=== PATIENT | male | born 1945 | race Caucasian/White ===

== ENCOUNTER 2020-03-29 15:05 | Inpatient (IN) | payer MEDICARE, OTHER ==
[~2020-03-29] VITALS: Ht 188 cm; Wt 128.6 kg
--- NOTE | 2020-03-29 15:05 | NUR ---
PATIENT BROUGHT IN BY EMS IN SEVERE RESPIRATORY DISTRESS WITH CPAP ON. MD AT BEDSIDE FOR EVAL
[2020-03-29 15:31] LABS: HEMATOCRIT 40.3 % (39.0-50.0); HEMOGLOBIN 11.9 g/dl (14.0-18.0); IMMATURE GRANULOCYTES 0.7 % (0.0-5.0); MEAN CELL VOLUME 81.1 fL CALC (80.0-100.0); MEAN CORPUSCULAR HGB 23.9 pG CALC (26.0-32.0); MEAN CORPUSCULAR HGB CONC 29.5 g/dL CAL (32.0-36.0); NEUT# 17.87 thou/uL (1.82-7.42); RED BLOOD COUNT 4.97 mill/uL (4.70-6.10); RED CELL DISTRI WIDTH 16.2 % (11.5-15.5)
--- NOTE | 2020-03-29 15:42 | NUR ---
RECEIVED PT FROM EMS ON CPAP OF 5 FROM [facility]. RR 30+ SO2 91%. PT PLACED ON CPAP OF [address] WANG FIO2 60%. ABG AFTER 30 MINUTES 7.4/40.8/24.9/97% FIO2 DECREASED TO 50% AT THIS TIME. PT IS IN NO RESPIRATORY DISTRESS. AND RN SYLVESTER IS AT BEDSIDE.
--- NOTE | 2020-03-29 15:46 | NUR ---
PT ARRIVED BY EMS IN RESP DISTRESS, A BIPAP WAS ALREADY ON PT AND EMS STATES HE WAS GIVEN DECADRON. PT HAS RR OF 25. HR ELEVATED AT 125. PT IS SOB AND IS NOT ANSWERING QUESTIONS, ONLY FEW WORDS USED. NOT AOX4.. PT HAS HX OF ALZHEIMERS. LUNGS HAS RHONCI SOUNDS BILAT THROUGHOUT. VISIBLE AND SLIGHTLY DISTENDED VEINS ON CHEST AND ABD. BIPAP INITIATED AT 1510. PT IN TRIPOD POSITION. ABD MUSCLES USED FOR BREATHING. WILL CONTINUE TO MONTITOR.
[2020-03-29 15:50] LABS: ALKALINE PHOSPHATASE 180 u/l (38-126); ANION GAP 12 (6-22 (CALC)); BILIRUBIN, TOTAL 0.7 mg/dL (0.0-1.4); BUN 20 mg/dL (8-23); BUN/CREATININE RATIO 16 (12-20 (CALC)); CARBON DIOXIDE 27 mmol/l (22-30); CHLORIDE 101 mmol/l (95-108); CREATININE 1.2 mg/dL (0.7-1.3); GFR 60 ML/MIN (>=60 (CALC)); GFR FOR AFR.AMER. > 60 ML/MIN (>=60 (CALC)); POTASSIUM 4.6 mmol/l (3.5-5.1); SGOT/AST 20 u/l (19-48); SODIUM 136 mmol/l (137-146); TOTAL PROTEIN 8.1 g/dL (6.3-8.2)
[2020-03-29] MEDS ORDERED: ASPIRIN81 MG PO (16:00)
[2020-03-29] MEDS ORDERED: LEVOTHYROXIN50 MCG PO (16:00)
[2020-03-29 16:02] LABS: MYOGLOBIN 68 ng/mL (0 - 121)
--- NOTE | 2020-03-29 16:30 | NUR ---
PT CONTINUES ON BIPAP MACHINE, BREATHING WITH NO DIFFICULTY. RESPIRATIONS CONTINUE TO BE RAPID AT 28. PT CONTINUES TO TRY AND GET OUT OF BED. BED REPOSITIONED.
--- NOTE | 2020-03-29 17:30 | NUR ---
PT CONTINUES TO BE IN UNCHANGED CONDITION, O2SAT IS AT 97%. HR AT 109 AND RR AT 28. PT IS IN NO DISTRESS AT THIS TIME AND BREATHING EFFECTIVELY SHOWING SYMETRICAL CHEST RISE AND FALL AND ADEQUATE RECOIL. PT CONTINUES TO TRY AND GET OUT OF BED
[2020-03-29] MEDS ORDERED: LASIX 40 MG TAB40 MG PO (18:12)
[2020-03-29] MEDS ORDERED: POTASSIUM CHLO20 ME1 PO (18:12)
[2020-03-29] MEDS ORDERED: DILTIAZEM120 M1 PO (18:13)
[2020-03-29] MEDS ORDERED: NEXIUM 24HR20 MG (18:13)
[2020-03-29] MEDS ORDERED: FOLIC ACID1 MG PO (18:14)
[2020-03-29] MEDS ORDERED: XARELTO10 MG PO (18:14)
[2020-03-29] MEDS ORDERED: TOPIRAMATE50 MG PO (18:14)
[2020-03-29] MEDS ORDERED: ATIVAN2 MG PO (18:14)
[2020-03-29] MEDS ORDERED: VITAMIN D5000 UNI1 (18:15)
[2020-03-29] MEDS ORDERED: ATORVASTATIN CA40 MG PO (18:15)
[2020-03-29] MEDS ORDERED: LEVEMIR FL100 UNIT/M SC (18:16)
[2020-03-29] MEDS ORDERED: HYDROCODONE BIT1 TA7 (18:16)
[2020-03-29] MEDS ORDERED: SYMBICORT1 AE1 IN (18:17)
[2020-03-29] MEDS ORDERED: OXY1 (18:17)
[2020-03-29] MEDS ORDERED: VENLAFAXINE150 MG PO (18:18)
[2020-03-29] MEDS ORDERED: ABILIFY MYCITE5 MG (18:18)
[2020-03-29] MEDS ORDERED: ALFUZOSIN HCL E10 MG PO (18:18)
[2020-03-29] MEDS ORDERED: FINASTERIDE5 MG PO (18:18)
[2020-03-29] MEDS ORDERED: FERRAPLUS 90 PO (18:19)
--- NOTE | 2020-03-29 18:22 | NUR ---
PT IS RESTING ON STRETCHER WITH AT BEDSIDE. PT IS TRYING TO GET OUT OF BED AND IS EXPLAINED THAT HE CANNOT GET OUT BECAUSE OF MACHINE THAT IS ATTACHED. O2 SAT AT 98%. ADEQUATE BREATHING THAT CONTINUES TO BE RAPID AT 25. WILL CONTINUE TO MONITOR.
--- NOTE | 2020-03-29 19:00 | NUR ---
GAVE REPORT TO DONI IN ICU AND NURSE GROVER WHOM I GAVE REPORT TO SAID SHE WILL TRANSPORT
--- NOTE | 2020-03-29 20:00 | NUR ---
PT WAS INCONTINENT LARGE AMOUNT OF URINE. CHANGED PT AND LINEN. PT TRANSPORTED WITH ASSISTANCE OF RT MIGUEL TO MOVE BIPAP, PT PACED ON 02 VIA [place] FOR TRANSPORT.
--- NOTE | 2020-03-29 20:05 | NUR ---
RECEIVED FROM ER VIA STRETCHER. PATIENT ABLE TO TRANSFER SELF FROM STRETCHER TO BED. ADMISSION WEIGHT PER BEDSCALE 284.1#. ORIENTED TO PERSON ONLY. ABLE TO STATE BIRTHDATE. ATTEMPTS TO ORIENT TO SURROUNDINGS. PLACED ON FRUIT INSPECTOR SHOWING AFIB. RT LUIZ IN ATTENDANCE PLACED PATIENT ON O2 6L HFNC. O2 SAT 93% REPS LABORED WITH EXERTION. BREATH SOUNDS DIMINISHED THROUGOUT. MOIST, NON-PRODUCTIVE COUGH NOTED. BLE EDEMATOUS, HARD-REDDENED WITH MULTIPLE SCABBED AREAS AND OPEN AREAS. PERIPHERAL PULSES PALPABLE. SALINE LOCKS INTACT IN LAC AND RFA, BOTH SITES BENIGN. EXPLAINED PLAN OF CARE. CALL SHERWOOD IN REACH.
[2020-03-29 20:15] VITALS: BP 136/65
[2020-03-29 20:30] VITALS: BP 122/68
--- NOTE | 2020-03-29 20:30 | NUR ---
PATIENT MERCED ASSISTED WITH ADMISSION HISTORY VIA TELEPHONE.
[2020-03-29 20:45] VITALS: BP 123/63
--- NOTE | 2020-03-29 21:30 | NUR ---
PATIENT SAT AT SIDE OF BED TO EAT.
[2020-03-29 21:45] VITALS: BP 112/62
--- NOTE | 2020-03-29 22:00 | NUR ---
VSS. AFIB ON MONITOR.
--- NOTE | 2020-03-29 22:20 | NUR ---
PATIENT HAS PERIODS OF RESTLESSNESS, YELLING OUT. INFORMED DR LOPEZ-NEW ORDERS RECEIVED.
--- NOTE | 2020-03-29 23:52 | NUR ---
XANAX 0.25 MG PO FOR AMXIETY AND RESTLESSNESS. VSS. RESP LABORED. MOIST COUGH. AFIB ON MONITOR.
[2020-03-30] VITALS (12 sets, daily range): BP systolic 91–148; BP diastolic 38–80
--- NOTE | 2020-03-30 00:30 | NUR ---
PATIENT RESTING QUIETLY AND CALMLY IN BED. NO COMPLAINTS VOICED.
--- NOTE | 2020-03-30 02:00 | NUR ---
VSS. MAINTAINING O2 SATS >95% RESP LESS LABORED. ART.
--- NOTE | 2020-03-30 04:00 | NUR ---
PAITENT HAS ONLY DOZED FOR SHORT INTERVALS. COOPERATIVE AND PLEASANT. SALINE LOCK IN RFA LEAKING, DC'D WITH CATHETER INATCT.
--- NOTE | 2020-03-30 05:00 | NUR ---
INCONTINENT OF LARGE AMOUNT OF URINE AND MODERATE HARD FORMED DARK BROWN STOOL. BAHED AND PARTIAL BED CHANGED.
[2020-03-30 05:19] LABS: HEMATOCRIT 38.3 % (39.0-50.0); HEMOGLOBIN 11.3 g/dl (14.0-18.0); MEAN CELL VOLUME 79.6 fL CALC (80.0-100.0); MEAN CORPUSCULAR HGB 23.5 pG CALC (26.0-32.0); MEAN CORPUSCULAR HGB CONC 29.5 g/dL CAL (32.0-36.0); NEUT# 18.07 thou/uL (1.82-7.42); RED BLOOD COUNT 4.81 mill/uL (4.70-6.10); RED CELL DISTRI WIDTH 16.1 % (11.5-15.5)
[2020-03-30 05:37] LABS: BUN 23 mg/dL (8-23); BUN/CREATININE RATIO 20 (12-20 (CALC)); CARBON DIOXIDE 25 mmol/l (22-30); CHLORIDE 101 mmol/l (95-108); CREATININE 1.1 mg/dL (0.7-1.3); GFR > 60 ML/MIN (>=60 (CALC)); GFR FOR AFR.AMER. > 60 ML/MIN (>=60 (CALC)); SODIUM 134 mmol/l (137-146)
[2020-03-30 05:42] LABS: ANION GAP 13 (6-22 (CALC)); POTASSIUM 5.2 mmol/l (3.5-5.1)
--- NOTE | 2020-03-30 06:00 | NUR ---
SITTING AT SIDE OF BED DRINKING COFFEE. OCCASSIONALLY ASKS WHERE IS. HAS BEEN CALM AND COOPERATIVE SINCE XANAX GIVEN LAST EVENING. VSS.
--- NOTE | 2020-03-30 07:47 | NUR ---
Patient is screened for PT intervention and he would benefit from consult if medical agrees
--- NOTE | 2020-03-30 09:00 | NUR ---
PT IS SEEN AWAKE, ALERT, ORIENTED X 2-3. LUNGS WHEEZY WITH COUGH, USES 5 LPM NC. NO COMPLAINTS OF SHORTNESS OF BREATH. PT INSISTS THAT HE FEELS WELL ENOUGH TO GO HOME. PT SEEN BY DR WOODRUFF, WHO WANTS HIM TO STAY AT LEAST THROUGH THE AFTERNOON TO SEE IF HE TRULY IS WELL ENOUGH TO GO HOME. MERCED HAS CALLED AND UPDATED. SHE BROUGHT BRIEFS FOR HIS INCONTINENCE. PT PROVIDED XANAX FOR HIS RESTLESSNESS.
--- NOTE | 2020-03-30 11:55 | NUR ---
PT UP TO BSC FOR LARGE BM. O-2 TURNED DOWN TO 3, SATS DROPPED. AT 4 LPM STILL LOW, SO BACK UP TO 5. NO COMPLAINTS OF SOB. PT CONTINUES WITH PRODUCTIVE COUGH, HEARD CLEARING.
--- NOTE | 2020-03-30 15:56 | NUR ---
PT SEEN RESTING IN THE BED WITH EYES CLOSED, NO DISTRESS NOTED. PT'S O-2 SATS IN THE LOW 90s WHILE AT REST.
--- NOTE | 2020-03-30 18:04 | NUR ---
PT ADVISED THAT DR WOODRUFF WOULD NOT BE DISCHARGED HOME TONIGHT. PT DISAPPOINTED. PT HAS RECLINER AT BEDSIDE, HAS BEEN GOING BACK AND FORTH STEADILY.
--- NOTE | 2020-03-30 19:15 | NUR ---
ASSESSMENT COMPLETED. DENIES NEEDS/PAIN. IV SITE PATENT AND SL. ALERT TO PERSON AND PLACE. PT. SITTING UP IN THE RECLINER; NO DISTRESS NOTED. O2 INFUSING PER NC PER ORDER. SCABBED AREAS NOTED TO BLE AND HEMATOMA TO LEFT GATES; CONCRETE PLANT LABORER. INSTRUCTED TO CALL FOR ANY NEEDS. CALL LIGHT IS IN REACH. WILL CONTINUE TO MONITOR. CALL LIGHT IS IN REACH.
--- NOTE | 2020-03-30 21:50 | NUR ---
ASSISTED PT. TO USE URINAL AND VOIDED 150MLS OF URINE; DEPENDS IS DRY. ASSISTED PT. INTO BED FROM RECLINER; PT. IS WITH EXERTIONAL SOB NOTED. DENIES FURTHER NEEDS. CALL LIGHT IS IN REACH.
[2020-03-30 22:30] LABS: URINE BILIRUBIN - DIPSTICK NEGATIVE (NEGATIVE); URINE BLOOD DIPSTICK NEGATIVE (NEGATIVE); URINE COLOR YELLOW; URINE GLUCOSE - DIPSTICK 250 mg/dL (NEGATIVE); URINE KETONE NEGATIVE (NEGATIVE); URINE LEUK ESTERASE NEGATIVE (NEGATIVE); URINE NITRITE - DIPSTICK NEGATIVE (Negative); URINE PH 5.5 (4.5-8.0); URINE PROTEIN - DIPSTICK TRACE mg/dL (NEG-TRACE); URINE SPECIFIC GRAVITY 1.025; URINE UROBILINOGEN - DIPSTICK 0.2 E.U./dL (0.2)
--- NOTE | 2020-03-30 23:30 | NUR ---
SCHEDULED SOLU-MEDROL GIVEN; DENIES NEEDS. VSS. WILL CONTINUE TO MONITOR.
[2020-03-31] VITALS (10 sets, daily range): BP systolic 104–161; BP diastolic 53–92
--- NOTE | 2020-03-31 01:11 | NUR ---
PT. SITTING UP ON THE SIDE OF THE BED AND NOTED TO BE ANXIOUS AND REQUESTING TO SMOKE CIGARETTES; PT. EDUCATED ON TOBACCO FREE CAMPUS AND MEDICATED WITH ORDERED PRN XANAX; WILL CONTINUE TO MONITOR.
--- NOTE | 2020-03-31 04:00 | NUR ---
PT. SITTING UP IN RECLINER WITH NO DISTRESS NOTED; O2 INFUSING PER NC PER ORDER. SNACK AND COFFEE PROVIDED. ENCOURAGED TO CALL FOR ANY NEEDS. CALL LIGHT IS IN REACH.
--- NOTE | 2020-03-31 05:00 | NUR ---
PT. HAD A LARGE INCONTINENCE OF URINE AND ASSISTED WITH A BATH WELL LINENS CHANGED. PO FLUIDS OFFERED. DAILY WT, OBTAINED. CALL LIGHT IS IN REACH. DENIES FURTHER NEEDS.
[2020-03-31] MEDS ORDERED: TAM75CAP PO (07:21)
[2020-03-31] MEDS ORDERED: DOXYCYCL HYC100 MG PO (07:23)
[2020-03-31] MEDS ORDERED: PREDNISONE10 MG PO (07:23)
[2020-03-31 08:13] LABS: HEMATOCRIT 39.6 % (39.0-50.0); HEMOGLOBIN 11.5 g/dl (14.0-18.0); MEAN CORPUSCULAR HGB 23.5 pG CALC (26.0-32.0); RED BLOOD COUNT 4.89 mill/uL (4.70-6.10)
[2020-03-31 08:37] LABS: ANION GAP 11 (6-22 (CALC)); BUN 32 mg/dL (8-23); BUN/CREATININE RATIO 31 (12-20 (CALC)); CARBON DIOXIDE 26 mmol/l (22-30); CHLORIDE 104 mmol/l (95-108); GFR > 60 ML/MIN (>=60 (CALC)); GFR FOR AFR.AMER. > 60 ML/MIN (>=60 (CALC)); POTASSIUM 4.8 mmol/l (3.5-5.1); SODIUM 136 mmol/l (137-146)
--- NOTE | 2020-03-31 09:16 | NUR ---
PT WAS SEEN BY DR WOODRUFF THIS MORNING, DISCUSSED HIS DISCHARGE. A FEW MINUTES LATER, PT SAID THAT HE WAS NOT READY FOR DISCHARGE THIS MORNING AFTER ALL. PT NOTIFIED OF HIS CHANGE OF MIND. NO DISTRESS NOTED. LUNGS ARE WHEEZY WITH COUGH, 4 LPM. OXYGEN DROPPED TO 3 LPM AND PT IS MAINTAINING WELL. PT IS BACK AND FORTH TO BED AND CHAIR DESIRED.
--- NOTE | 2020-03-31 13:07 | NUR ---
PT HAS BEEN AT REST IN THE BED FOR MOST OF TODAY. OXYGEN REMAINS AT 3 LPM, WHICH IS WHAT HE USES AT HOME, SATS 91%.
--- NOTE | 2020-03-31 15:48 | NUR ---
PT CONTINUES BEFORE, OOB IN CHAIR AND RESTING IN BED. PT STATES THAT HE IS BREATHING A LITTLE BETTER. OXYGEN REMAINS AT 3 LPM, SAME HIS HOME RATE, SATS LOW 90s.
--- NOTE | 2020-03-31 19:10 | NUR ---
REPORT GIVEN BY LENNY. PATIENT SITTING UP AT THE BEDSIDE. RESP EVEN AND LABORED, OXYGEN IN PLACE.IV SALINE LOCKED. pLAN OF CARE DISCUSSED. PATIENT INFORMED TO CALL WITH ANY QUESTIONS OR CONCERNS. FALL AND SAFTEY PRECAUTIONS IN PLACE.
--- NOTE | 2020-03-31 20:35 | NUR ---
PATIENT'S LINEN CHANGE PERFORMED. NEW GOWN PLACED ON PATIENT AND TELE PADS. PATIENT PULLED TELE PADS OFF WITH HIS CONSTANT MOVING. AT THIS TIME PATIENT ASKING FOR ICE CREAM HE WAS INFORMED DUE TO HIS DIABETES AND BLOOD GLUCOSE BEING HIGH I WAS UNABLE TO GIVE HIM ICE CREAM. HE HAS BEEN GIVEN SUGAR-FREE OPTIONS TO CHOOSE FROM.
--- NOTE | 2020-03-31 22:00 | NUR ---
PATIENT RESTING IN BED.FfALL AND SAFTEY PRECAUTIONS IN PLACE.
[2020-04-01] VITALS: BP 113/56
--- NOTE | 2020-04-01 | NUR ---
pATIENT CALLING AND REQUESTING A BREATHING TREATMENT. PATIENT STATES HE HASN'T BEEN GIVEN ONE ALL NIGHT, I INFORMED THE PATIENT THATHE DIDN'T HAVE ANY SCHEDULED. HE NEEDS TO CALL FOR BREATHING TREATMENTS IF HE FEELS HE NEEDS ONE. RT AT THE BEDSIDE.
[2020-04-01 02:00] VITALS: BP 124/67
[2020-04-01 04:00] VITALS: BP 127/70
--- NOTE | 2020-04-01 04:30 | NUR ---
PATIENT BROKE PATIENT ID [id number]. NEW BRACELT PRINTED AND PLACED ON PATIENT. VERIFED NAME AND WITH PATIENT.
[2020-04-01 06:00] VITALS: BP 132/72
--- NOTE | 2020-04-01 06:19 | NUR ---
PATIENT CALLING OUT TO STAFF STATING HE DOESN'T FEEL WELL, HE NEEDS SOMETHING TO EAT. PATIENT WAS BROUGHT A NURTIGRAIN BAR AND BLOOD GLUCOSE WAS CHECKED. BLOOD GLUCOSE WAS 248. PATIENT STATED THAT IT JUST MAKES HIS NAUSEA IF HE DOESN'T GET SOEMTHING TO EAT SOON HE WAKES UP IN THE MORNING.
[2020-04-01 08:00] VITALS: BP 142/78
--- NOTE | 2020-04-01 08:25 | NUR ---
PT SEEN AWAKE, ALERT, ORIENTED X 3. LUNGS CLEAR, DIMINISHED, WITH SLIGHT WHEEZE AFTER COUGHING, USING 3 LPM. NO COMPLAINT OF SHORTNESS OF BREATH OR OTHERWISE. PT STATES THAT HE FEELS WELL ENOUGH TO GO HOME TODAY. DR WOODRUFF HAS SEEN PT, OKAYS DISCHARGE FOR TODAY. PT SITS UP IN THE BED OR CHAIR DESIRED. PT VOIDS IN URINAL OCCASIONALLY, OTHERWISE USES BRIEFS.
[2020-04-01 09:00] VITALS: BP 125/60
--- NOTE | 2020-04-01 10:27 | NUR ---
PT HAS BEEN DISCHARGED TO HOME. PT VERBALIZES UNDERSTANDING OF DC INSTRUCTIONS, TAKEN BY WHEELCHAIR TO VEHICLE WHERE MERCED WAS WAITING. PT DID HAVE HOME OXYGEN WAITING FOR HIM AND WAS HOOKED TO TANK TO GET TO [facility]. TO PROVIDE RESPIRATORY TREATMENT AT HOME PER COARSENESS TO BREATH SOUNDS.
== END 2020-04-01 10:15 | disposition home health service (06) | DRG 190 ==
LOC: ED 15:05 → ED-I 16:40 → ED 17:00 → ICU 17:01
PROVIDERS: Emergency Medicine; Internal Medicine; ADMIT Internal Medicine; ATTEND Internal Medicine
PROC: 5A09357 Assistance with Respiratory Ventilation, Less than 24 Consecutive Hours, Continuous Positive Airway Pressure (ICD-10-PCS; principal; 2020-03-29)
DX: J44.1 Chronic obstructive pulmonary disease with (acute) exacerbation (principal); J96.21 Acute and chronic respiratory failure with hypoxia; J11.1 Influenza due to unidentified influenza virus with other respiratory manifestations; I25.10 Atherosclerotic heart disease of native coronary artery without angina pectoris; I48.91 Unspecified atrial fibrillation; I10 Essential (primary) hypertension; E11.9 Type 2 diabetes mellitus without complications; F03.90 Unspecified dementia, unspecified severity, without behavioral disturbance, psychotic disturbance, mood disturbance, and anxiety; E78.5 Hyperlipidemia, unspecified; E03.9 Hypothyroidism, unspecified; G89.29 Other chronic pain; S80.12XA Contusion of left lower leg, initial encounter; W22.8XXA Striking against or struck by other objects, initial encounter; Z20.828 Contact with and (suspected) exposure to other viral communicable diseases; Z99.81 Dependence on supplemental oxygen; Z79.01 Long term (current) use of anticoagulants; Z79.4 Long term (current) use of insulin; Z79.891 Long term (current) use of opiate analgesic; Z79.82 Long term (current) use of aspirin; Z79.899 Other long term (current) drug therapy

== ENCOUNTER 2020-05-15 09:11 | Emergency (ER) | payer MEDICARE, OTHER ==
[~2020-05-15] VITALS: Ht 188 cm; Wt 136.4 kg
[~2020-05-15 09:11] MED LIST: ABILIFY MYCITE5 MG; ALFUZOSIN HCL E10 MG PO; ASPIRIN81 MG PO; ATIVAN2 MG PO; ATORVASTATIN CA40 MG PO; DILTIAZEM120 M1 PO; DOXYCYCL HYC100 MG PO; FERRAPLUS 90 PO; FINASTERIDE5 MG PO; FOLIC ACID1 MG PO; HYDROCODONE BIT1 TA7; LASIX 40 MG TAB40 MG PO; LEVEMIR FL100 UNIT/M SC; LEVOTHYROXIN50 MCG PO; NEXIUM 24HR20 MG; OXY1; POTASSIUM CHLO20 ME1 PO; PREDNISONE10 MG PO; SYMBICORT1 AE1 IN; TAM75CAP PO; TOPIRAMATE50 MG PO; VENLAFAXINE150 MG PO; VITAMIN D5000 UNI1; XARELTO10 MG PO
[2020-05-15 10:07] LABS: HEMATOCRIT 37.8 % (39.0-50.0); HEMOGLOBIN 11.1 g/dl (14.0-18.0); IMMATURE GRANULOCYTES 1.1 % (0.0-5.0); MEAN CELL VOLUME 81.5 fL CALC (80.0-100.0); MEAN CORPUSCULAR HGB 23.9 pG CALC (26.0-32.0); MEAN CORPUSCULAR HGB CONC 29.4 g/dL CAL (32.0-36.0); NEUT# 12.85 thou/uL (1.82-7.42); RED BLOOD COUNT 4.64 mill/uL (4.70-6.10); RED CELL DISTRI WIDTH 17.9 % (11.5-15.5)
[2020-05-15 10:29] LABS: ALBUMIN 3.8 g/dL (3.2-5.0); ALKALINE PHOSPHATASE 164 u/l (38-126); ANION GAP 13 (6-22 (CALC)); BILIRUBIN, TOTAL 0.6 mg/dL (0.0-1.4); BUN 20 mg/dL (8-23); BUN/CREATININE RATIO 17 (12-20 (CALC)); C-REACTIVE PROTEIN 7.7 mg/dL (0-0.9); CARBON DIOXIDE 25 mmol/l (22-30); CHLORIDE 98 mmol/l (95-108); CREATININE 1.2 mg/dL (0.7-1.3); GFR 60 ML/MIN (>=60 (CALC)); GFR FOR AFR.AMER. > 60 ML/MIN (>=60 (CALC)); LIPASE 28 u/l (23-300); POTASSIUM 4.6 mmol/l (3.5-5.1); SGOT/AST 23 u/l (19-48); SODIUM 132 mmol/l (137-146); TOTAL PROTEIN 7.1 g/dL (6.3-8.2)
[2020-05-15] MEDS ORDERED: ZPAK PO (12:03)
[2020-05-15] MEDS ORDERED: PREDNISONE50 MG PO (12:03)
[2020-05-15 12:51] VITALS: BP 134/63
== END 2020-05-15 13:35 | disposition home or self-care (01) ==
LOC: ED 09:11
PROVIDERS: Family Medicine
DX: J06.9 Acute upper respiratory infection, unspecified (principal); J44.9 Chronic obstructive pulmonary disease, unspecified; E11.9 Type 2 diabetes mellitus without complications; I10 Essential (primary) hypertension; I48.91 Unspecified atrial fibrillation; E78.5 Hyperlipidemia, unspecified; F03.90 Unspecified dementia, unspecified severity, without behavioral disturbance, psychotic disturbance, mood disturbance, and anxiety; F17.200 Nicotine dependence, unspecified, uncomplicated; Z79.4 Long term (current) use of insulin; Z99.81 Dependence on supplemental oxygen; Z20.822 Contact with and (suspected) exposure to COVID-19

== ENCOUNTER 2020-07-23 | Inpatient (IN) | payer MEDICARE, OTHER ==
[~2020-07-23] MED LIST changes: -HYDROCODONE BIT1 TA7; +HYDROCODONE BIT1 TA7 PO; -NEXIUM 24HR20 MG; +NEXIUM 24HR20 MG PO; +PREDNISONE50 MG PO; -VITAMIN D5000 UNI1; +VITAMIN D5000 UNI1 PO; +ZPAK PO
[2020-07-23 21:09] LABS: HEMATOCRIT 41.5 % (39.0-50.0); HEMOGLOBIN 12.3 g/dl (14.0-18.0); IMMATURE GRANULOCYTES 1.6 % (0.0-5.0); MEAN CELL VOLUME 84.5 fL CALC (80.0-100.0); MEAN CORPUSCULAR HGB 25.1 pG CALC (26.0-32.0); MEAN CORPUSCULAR HGB CONC 29.6 g/dL CAL (32.0-36.0); NEUT# 22.58 thou/uL (1.82-7.42); RED BLOOD COUNT 4.91 mill/uL (4.70-6.10); RED CELL DISTRI WIDTH 18.3 % (11.5-15.5)
[2020-07-23 21:24] LABS: ALKALINE PHOSPHATASE 157 u/l (38-126); ANION GAP 15 (6-22 (CALC)); BILIRUBIN, TOTAL 0.7 mg/dL (0.0-1.4); BUN 34 mg/dL (8-23); BUN/CREATININE RATIO 27 (12-20 (CALC)); CARBON DIOXIDE 23 mmol/l (22-30); CHLORIDE 100 mmol/l (95-108); CREATININE 1.3 mg/dL (0.7-1.3); GFR 54 ML/MIN (>=60 (CALC)); GFR FOR AFR.AMER. > 60 ML/MIN (>=60 (CALC)); POTASSIUM 4.8 mmol/l (3.5-5.1); SGOT/AST 26 u/l (19-48); SODIUM 133 mmol/l (137-146); TOTAL PROTEIN 8.4 g/dL (6.3-8.2)
[2020-07-23 21:28] LABS: ALBUMIN 4.6 g/dL (3.2-5.0)
[2020-07-24] VITALS (9 sets, daily range): BP systolic 102–143; BP diastolic 53–80
[2020-07-24 04:32] LABS: HEMATOCRIT 38.2 % (39.0-50.0); HEMOGLOBIN 11.4 g/dl (14.0-18.0); IMMATURE GRANULOCYTES 2.1 % (0.0-5.0); MEAN CELL VOLUME 84.3 fL CALC (80.0-100.0); MEAN CORPUSCULAR HGB 25.2 pG CALC (26.0-32.0); MEAN CORPUSCULAR HGB CONC 29.8 g/dL CAL (32.0-36.0); NEUT# 26.09 thou/uL (1.82-7.42); RED BLOOD COUNT 4.53 mill/uL (4.70-6.10); RED CELL DISTRI WIDTH 18.4 % (11.5-15.5)
[2020-07-24 04:42] LABS: BUN 35 mg/dL (8-23); BUN/CREATININE RATIO 26 (12-20 (CALC)); CARBON DIOXIDE 24 mmol/l (22-30); CHLORIDE 101 mmol/l (95-108); CREATININE 1.3 mg/dL (0.7-1.3); GFR 54 ML/MIN (>=60 (CALC)); GFR FOR AFR.AMER. > 60 ML/MIN (>=60 (CALC)); SODIUM 132 mmol/l (137-146)
[2020-07-24 04:44] LABS: ANION GAP 12 (6-22 (CALC)); POTASSIUM 5.4 mmol/l (3.5-5.1)
[2020-07-24] MEDS ORDERED: SYMBICORT1 AE1 IN (15:22)
[2020-07-24] MEDS ORDERED: ABILIFY MYCITE5 MG PO (15:24)
[2020-07-24] MEDS ORDERED: ALBUTEROL108 MCG/AC IN (15:28)
[2020-07-24] MEDS ORDERED: TURMERIC CURCU500 MG PO (15:38)
[2020-07-24] MEDS ORDERED: OXY1 (15:39)
[2020-07-25] VITALS (17 sets, daily range): BP systolic 110–166; BP diastolic 50–80
[2020-07-25 05:57] LABS: HEMATOCRIT 38.5 % (39.0-50.0); HEMOGLOBIN 11.3 g/dl (14.0-18.0); MEAN CELL VOLUME 85.4 fL CALC (80.0-100.0); MEAN CORPUSCULAR HGB 25.1 pG CALC (26.0-32.0); MEAN CORPUSCULAR HGB CONC 29.4 g/dL CAL (32.0-36.0); RED BLOOD COUNT 4.51 mill/uL (4.70-6.10); RED CELL DISTRI WIDTH 18.3 % (11.5-15.5)
[2020-07-25 06:05] LABS: ANION GAP 12 (6-22 (CALC)); BUN 41 mg/dL (8-23); BUN/CREATININE RATIO 34 (12-20 (CALC)); CARBON DIOXIDE 28 mmol/l (22-30); CHLORIDE 100 mmol/l (95-108); CREATININE 1.2 mg/dL (0.7-1.3); GFR 60 ML/MIN (>=60 (CALC)); GFR FOR AFR.AMER. > 60 ML/MIN (>=60 (CALC)); POTASSIUM 4.7 mmol/l (3.5-5.1); SODIUM 135 mmol/l (137-146)
[2020-07-26] VITALS (21 sets, daily range): BP systolic 114–149; BP diastolic 48–80
[2020-07-27] VITALS (9 sets, daily range): BP systolic 103–159; BP diastolic 57–85
[2020-07-27 05:57] LABS: HEMATOCRIT 39.7 % (39.0-50.0); HEMOGLOBIN 11.8 g/dl (14.0-18.0); IMMATURE GRANULOCYTES 1.6 % (0.0-5.0); MEAN CELL VOLUME 83.4 fL CALC (80.0-100.0); MEAN CORPUSCULAR HGB 24.8 pG CALC (26.0-32.0); MEAN CORPUSCULAR HGB CONC 29.7 g/dL CAL (32.0-36.0); RED BLOOD COUNT 4.76 mill/uL (4.70-6.10); RED CELL DISTRI WIDTH 17.5 % (11.5-15.5)
[2020-07-27 05:59] LABS: ANION GAP 13 (6-22 (CALC)); BUN 38 mg/dL (8-23); BUN/CREATININE RATIO 34 (12-20 (CALC)); CARBON DIOXIDE 26 mmol/l (22-30); CHLORIDE 99 mmol/l (95-108); CREATININE 1.1 mg/dL (0.7-1.3); GFR > 60 ML/MIN (>=60 (CALC)); GFR FOR AFR.AMER. > 60 ML/MIN (>=60 (CALC)); POTASSIUM 4.8 mmol/l (3.5-5.1); SODIUM 133 mmol/l (137-146)
[2020-07-27] MEDS ORDERED: ZITHROMAX500 MG PO (11:44)
[2020-07-27] MEDS ORDERED: PREDNISONE10 MG PO (11:46)
== END 2020-07-27 14:04 | DRG 291 ==
PROVIDERS: Emergency Medicine; Internal Medicine; ADMIT Internal Medicine
DX: I11.0 Hypertensive heart disease with heart failure (principal); J18.9 Pneumonia, unspecified organism; J96.21 Acute and chronic respiratory failure with hypoxia; J44.1 Chronic obstructive pulmonary disease with (acute) exacerbation; L97.129 Non-pressure chronic ulcer of left thigh with unspecified severity; J44.0 Chronic obstructive pulmonary disease with (acute) lower respiratory infection; I50.9 Heart failure, unspecified; E11.9 Type 2 diabetes mellitus without complications; I48.91 Unspecified atrial fibrillation; E78.5 Hyperlipidemia, unspecified; F03.90 Unspecified dementia, unspecified severity, without behavioral disturbance, psychotic disturbance, mood disturbance, and anxiety; D64.9 Anemia, unspecified; E63.9 Nutritional deficiency, unspecified; I87.2 Venous insufficiency (chronic) (peripheral); F17.210 Nicotine dependence, cigarettes, uncomplicated; Z79.4 Long term (current) use of insulin; Z79.01 Long term (current) use of anticoagulants; Z99.81 Dependence on supplemental oxygen; Z20.822 Contact with and (suspected) exposure to COVID-19
CPT/HCPCS: J2060